=== PATIENT | male | born 1995 | race Caucasian/White ===

== ENCOUNTER 2018-01-25 22:59 | Emergency (ER) | payer OTHER ==
[~2018-01-25] VITALS: Ht 177.8 cm; Wt 116.6 kg
[2018-01-26 00:42] LABS: ABSOLUTE NEUTROPHILS 5.1 thou/uL (1.4-8.2); BASOPHILS 0.4 % (0.0-2.0); EOSINOPHILS 0.5 % (0.0-3.0); HEMATOCRIT 43.5 % (42.0-52.0); LYMPHOCYTES 31.2 % (24.0-44.0); MCH 31.1 pg (26.0-34.0); MCHC 34.5 g/dL (28.0-37.0); MCV 90.1 fL (80.0-100.0); MONOCYTES 7.1 % (1.0-8.0); PLATELET COUNT 211 thou/uL (150-400); POLYS 60.8 % (36.0-66.0); RBC 4.83 mil/uL (4.50-6.00); RDW 13.2 % (10.5-14.5); WBC 8.3 thou/uL (4.0-11.0)
[2018-01-26 00:52] LABS: CALCIUM 9.6 mg/dL (8.5-10.1); CREATININE 1.4 mg/dL (0.7-1.3); POTASSIUM 3.7 mmol/L (3.5-5.1)
[2018-01-26 00:58] LABS: ALBUMIN 4.4 g/dL (3.4-5.0); DIRECT BILIRUBIN 0.1 mg/dL (<0.1-0.3); TOTAL BILIRUBIN 0.5 mg/dL (<0.1-1.0); TOTAL PROTEIN 7.6 g/dL (6.4-8.2)
[2018-01-26 01:22] LABS: URINE BILIRUBIN NEGATIVE (Negative); URINE BLOOD NEGATIVE (Negative); URINE CLARITY CLEAR; URINE COLOR YELLOW; URINE GLUCOSE-RANDOM* NEGATIVE (Negative); URINE KETONES NEGATIVE (Negative); URINE LEUKOCYTES NEGATIVE (Negative); URINE NITRITE NEGATIVE (Negative); URINE PROTEIN (DIPSTICK) NEGATIVE (Negative); URINE UROBILINOGEN 0.2 E.U./dl (0.2-1.0)
[2018-01-26] MEDS ORDERED: ZOFRAN ODT4 MG PO (03:10)
[2018-01-26] MEDS ORDERED: PROTONIX40 MG PO (03:10)
[2018-01-26 03:14] VITALS: BP 159/58
== END 2018-01-26 03:51 | disposition home or self-care (01) ==
LOC: ER 22:59
PROVIDERS: Emergency Medicine
DX: R10.13 Epigastric pain (principal); R16.1 Splenomegaly, not elsewhere classified; R11.2 Nausea with vomiting, unspecified; Z90.89 Acquired absence of other organs